=== PATIENT | male | born 1965 | race Hispanic/Latino ===

== ENCOUNTER → 2019-10-14 | Day surgery (SDC) | payer OTHER ==
[~2019-10-14] MED LIST: FENTANYL CITRATE/PF 100MCG/2 ML INJ ONE; HYOSCYAMINE 0.125 MG TAB ONE; MIDAZOLAM HCL 5 MG/ML VIAL ONE; PROPOFOL IV EMULSION 10 MG/ML 20 ML VIAL ONE
[2019-10-14 16:45] VITALS: BP 165/90
--- NOTE | 2019-10-14 22:30 | Operative Report ---
DATE OF PROCEDURE: 10/14/2019 SURGEON: Mannie Freed MD PROCEDURE: Colonoscopy with polypectomy. INDICATION FOR COLONOSCOPY: Surveillance colonoscopy. MEDICATIONS: The patient was done under MAC, please see anesthesiologist's note. PROCEDURE IN DETAIL: With the patient in the left lateral decubitus position, a flexible fiberoptic Olympus colonoscope was introduced into the rectum with ease and advanced all the way to the cecum. Prep overall was suboptimal to poor with [id number] amount of retained fecal material in the cecum and scattered pretty much throughout the colon with exclusion of the distal sigmoid and rectum. Two polyps in the proximal rectum were removed per hot biopsy forceps. The scope was then retroflexed into the distal rectum and moderate-sized internal hemorrhoids were noted, none of which was actively bleeding. The scope was then straightened out, it was subsequently withdrawn, and the patient tolerated the procedure well. IMPRESSION: 1. Poor prep. 2. Rectal polyps x2, hot biopsied. 3. Internal hemorrhoids, none actively bleeding. PLAN: Follow up histology. The patient will need a repeat colonoscopy after a better prep. Mannie Freed MD [facility] [place] [place][id number] cc: Valerie Shaikh MD
== END | disposition home or self-care (01) ==
LOC: OR 13:00
PROVIDERS: ATTEND Internal Medicine Gastroenterology
DX: Z12.11 Encounter for screening for malignant neoplasm of colon (principal); K62.1 Rectal polyp; K59.09 Other constipation; K64.8 Other hemorrhoids; K29.60 Other gastritis without bleeding; I10 Essential (primary) hypertension; R00.1 Bradycardia, unspecified; Z01.810 Encounter for preprocedural cardiovascular examination; Z01.812 Encounter for preprocedural laboratory examination; Z11.59 Encounter for screening for other viral diseases; Z68.38 Body mass index [BMI] 38.0-38.9, adult
CPT/HCPCS: 45384; 87635; 93005; J2250; J2704; J3010